=== PATIENT | female | born 1985 | race Two or more races ===

== ENCOUNTER 2016-10-08 23:43 | Emergency (ER) | payer OTHER ==
[~2016-10-08] VITALS: Ht 154.9 cm; Wt 56.7 kg
[~2016-10-08 23:43] MED LIST: CODE1CAP21
--- NOTE | 2016-10-08 23:55 | NUR ---
TO BED 8 A 30 YO FEMALE BIBSELF AND PT C/O LEFT SIDED NECK PAIN RADIATES TO LEFT SIDE OF FACE SINCE 5AM. NO TRAUMA. +N-V. TYLENOL 1GM 7AM. NAD NOTED. VSS. NONDIAPHORETIC. COMFORT MEASURES RENDERED. AWAITING FOR ER MD LANE.
--- NOTE | 2016-10-09 00:16 | NUR ---
Patel Barone at bedside to eval.
--- NOTE | 2016-10-09 00:28 | NUR ---
Patient discharged to home in stable condition. Written and verbal after care instructions given. Patient verbalizes understanding of instruction. Patient is ambulatory with steady gait, no further complaints.
[2016-10-09 00:29] VITALS: BP 105/71
== END 2016-10-09 00:43 | disposition home or self-care (01) ==
LOC: ER 23:47
DX: M62.838 Other muscle spasm (principal)
CPT/HCPCS: 99283; A4606; Z7610

== ENCOUNTER 2017-09-06 21:40 | Emergency (ER) | payer OTHER ==
[~2017-09-06] VITALS: Ht 154.9 cm; Wt 49.0 kg
[2017-09-06] MEDS ORDERED: MORPHINE SULFATE INJ 4 MG/ML DISP.SYRIN ONE (22:14)
[2017-09-06] MEDS ORDERED: ONDANSETRON HCL/PF 4 MG/2 ML VIAL ONE (22:14)
[2017-09-06] MEDS ORDERED: IV NS 0.9% 1,000 ML BAG IV ONE (22:30)
[2017-09-06] MEDS ORDERED: ONDANSETRON HCL/PF 4 MG/2 ML VIAL IVP ONE (22:30)
[2017-09-06] MEDS ORDERED: MORPHINE SULFATE INJ 2 MG/ML DISP.SYRIN IV ONE (22:30)
[2017-09-06 22:55] LABS: BASOPHILS % (AUTO) 0.1 % (0.0-2.0); EOSINOPHILS % (AUTO) 1.1 % (0.0-6.0); HEMATOCRIT 44 % (33-45); HEMOGLOBIN 15.3 g/dL (11.5-14.8); LYMPHOCYTES # (AUTO) 2.2 /CMM (0.8-4.8); LYMPHOCYTES % (AUTO) 21.2 % (20.0-44.0); MEAN CORPUSCULAR HEMOGLOBIN 32 PG (26.0-33.0); MEAN CORPUSCULAR HGB CONC 35 g/dl (31.0-36.0); MEAN CORPUSCULAR VOLUME 92 fL (82-100); MONOCYTES # (AUTO) 0.5 /CMM (0.1-1.30); MONOCYTES % (AUTO) 4.9 % (2.0-12.0); NEUTROPHILS # (AUTO) 7.5 /CMM (1.8-8.9); NEUTROPHILS % (AUTO) 72.7 % (43.0-81.0); PLATELET COUNT (AUTO) 221 /CMM (150-450); RDW COEFFICIENT OF VARIATION 12.4 (11.5-15.0); RED BLOOD CELL COUNT(AUTO) 4.81 MIL/uL (4.0-5.2); WHITE BLOOD COUNT (AUTO) 10.4 K/uL (4.3-11.0)
[2017-09-06 23:09] LABS: APPEARANCE,URINE CLOUDY (CLEAR); BILIRUBIN,URINE NEGATIVE (NEGATIVE); BLOOD, URINE 2+ Ery/uL (NEGATIVE); COLOR,URINE OTHER (YELLOW); KETONES,URINE NEGATIVE (NEGATIVE); LEUKOCYTE ESTERASE ,URINE NEGATIVE (NEGATIVE); NITRITE, URINE NEGATIVE (NEGATIVE); PROTEIN,URINE NEGATIVE (NEGATIVE); UGLUCOSE NEGATIVE (NEGATIVE); UROBILINOGEN,URINE 0.2 EU/dL (0.2)
[2017-09-06 23:16] LABS: CALCIUM, SERUM 9.8 mg/dL (8.5-10.1); CREATININE 0.7 mg/dL (0.6-1.3); POTASSIUM 3.7 mmol/L (3.5-5.1); WBC,URINE 0-2 /HPF (0-3)
[2017-09-06 23:17] LABS: BACTERIA,URINE Moderate /HPF (None Seen); SQUAMOUS EPITHELIAL CELL,UR Moderate /HPF (None Seen); URINE AMORPHOUS PHOSPHATES Moderate /HPF (None Seen)
[2017-09-06] MEDS ORDERED: KETOROLAC TROMETHAMINE INJ 30 MG/ML VIAL ONE (23:19)
[2017-09-06 23:23] LABS: BILIRUBIN,DIRECT 0.1 mg/dL (0.0-0.2); BILIRUBIN,TOTAL 0.5 mg/dL (0.2-1.0); TOTAL PROTEIN, SERUM 7.5 g/dL (6.4-8.2)
[2017-09-06 23:28] LABS: INR 0.98 (0.87-1.13)
[2017-09-06] MEDS ORDERED: KETOROLAC TROMETHAMINE INJ 30 MG/ML VIAL IV ONE (23:30)
[2017-09-07 01:19] VITALS: BP 145/85
== END 2017-09-07 01:20 | disposition home or self-care (01) ==
LOC: ER 21:45
DX: R10.9 Unspecified abdominal pain (principal); R31.9 Hematuria, unspecified; R11.0 Nausea
CPT/HCPCS: 36415; 74176; 80048; 80076; 81001; 83690; 84703; 85025; 85730; 87086; 96361; 96374; 96375; 99285; A4606; J1885; J2270; J2405; J7030; J7050; Z7610; 81000-TC

== ENCOUNTER 2017-09-07 13:32 | Emergency (ER) | payer OTHER ==
[~2017-09-07] VITALS: Ht 154.9 cm; Wt 49.0 kg
--- NOTE | 2017-09-07 13:40 | NUR ---
PT PRESENTED TO THE ER WITH A C/O ABD PAIN THAT RADIATES TO THE RT AND LEFT FLANK. PT STATED THAT SHE WAS HERE YESTERDAY AND WAS SENT HOME, BUT TOLD TO COME BACK IF PAIN WORSENS. RX MEDICATION DID NOT HELP. PT IS GUARDING HER ABD. 20G IV STARTED LAC. BLOOD DRAWN AND SENT TO LAB.
[2017-09-07] MEDS ORDERED: IV NS 0.9% 1,000 ML BAG IV ONE (14:00)
[2017-09-07] MEDS ORDERED: MORPHINE SULFATE INJ 2 MG/ML DISP.SYRIN IV ONE (14:00)
[2017-09-07] MEDS ORDERED: ONDANSETRON HCL/PF 4 MG/2 ML VIAL IVP ONE (14:00)
[2017-09-07] MEDS ORDERED: ONDANSETRON HCL/PF 4 MG/2 ML VIAL ONE (14:08)
[2017-09-07] MEDS ORDERED: MORPHINE SULFATE INJ 4 MG/ML DISP.SYRIN ONE (14:08)
[2017-09-07 14:34] LABS: BASOPHILS % (AUTO) 0.1 % (0.0-2.0); EOSINOPHILS % (AUTO) 0.1 % (0.0-6.0); HEMATOCRIT 42 % (33-45); HEMOGLOBIN 14.6 g/dL (11.5-14.8); LYMPHOCYTES # (AUTO) 0.7 /CMM (0.8-4.8); LYMPHOCYTES % (AUTO) 6.3 % (20.0-44.0); MEAN CORPUSCULAR HEMOGLOBIN 31 PG (26.0-33.0); MEAN CORPUSCULAR HGB CONC 35 g/dl (31.0-36.0); MEAN CORPUSCULAR VOLUME 90 fL (82-100); MONOCYTES # (AUTO) 0.3 /CMM (0.1-1.30); MONOCYTES % (AUTO) 2.4 % (2.0-12.0); NEUTROPHILS # (AUTO) 10.9 /CMM (1.8-8.9); NEUTROPHILS % (AUTO) 91.1 % (43.0-81.0); PLATELET COUNT (AUTO) 197 /CMM (150-450); RDW COEFFICIENT OF VARIATION 11.6 (11.5-15.0); RED BLOOD CELL COUNT(AUTO) 4.68 MIL/uL (4.0-5.2); WHITE BLOOD COUNT (AUTO) 11.9 K/uL (4.3-11.0)
[2017-09-07 14:38] LABS: APPEARANCE,URINE Clear (CLEAR); BILIRUBIN,URINE Negative (NEGATIVE); BLOOD, URINE Large Ery/uL (NEGATIVE); COLOR,URINE Yellow (YELLOW); KETONES,URINE 40 (NEGATIVE); LEUKOCYTE ESTERASE ,URINE Negative (NEGATIVE); NITRITE, URINE Negative (NEGATIVE); PH,URINE 5.5 (5.0-8.0); PROTEIN,URINE Trace mg/dl (NEGATIVE); UGLUCOSE Negative (NEGATIVE); UROBILINOGEN,URINE 0.2 EU/dL (0.2)
[2017-09-07 14:44] LABS: CREATININE 0.7 mg/dL (0.6-1.3); POTASSIUM 4.1 mmol/L (3.5-5.1)
[2017-09-07 14:47] LABS: INR 1.06 (0.85-1.15)
[2017-09-07 14:49] LABS: ALBUMIN 3.8 g/dL (3.4-5.0); BILIRUBIN,DIRECT 0.1 mg/dL (0.0-0.2); BILIRUBIN,TOTAL 0.5 mg/dL (0.2-1.0); TOTAL PROTEIN, SERUM 6.9 g/dL (6.4-8.2)
[2017-09-07 14:54] LABS: RBC,URINE 20-50 /HPF (0-2)
[2017-09-07 14:55] LABS: BACTERIA,URINE Few /HPF (None Seen); SQUAMOUS EPITHELIAL CELL,UR Moderate /HPF (None Seen); WBC,URINE 0-3 /HPF (0-3)
[2017-09-07] MEDS ORDERED: KETOROLAC TROMETHAMINE INJ 30 MG/ML VIAL ONE (15:27)
[2017-09-07] MEDS ORDERED: KETOROLAC TROMETHAMINE INJ 30 MG/ML VIAL IV ONE (15:30)
--- NOTE | 2017-09-07 15:45 | NUR ---
IV removed. Catheter intact and site benign. Pressure and 4x4 applied to site. No bleeding noted.Patient discharged to home in stable condition. Written and verbal after care instructions given. Patient verbalizes understanding of instruction. COPY OF LABS AND US FINDINGS GIVEN TO PT. PT AMBULATED OUT WITH A STEADY GAIT. VSS.
[2017-09-07 15:47] VITALS: BP 126/74
== END 2017-09-07 15:50 | disposition home or self-care (01) ==
LOC: ER 13:35
DX: R10.11 Right upper quadrant pain (principal); Z91.018 Allergy to other foods
CPT/HCPCS: 36415; 76705; 80048; 80076; 81001; 83690; 84703; 85025; 85730; 96374; 96375; 99285; A4606; J1885; J2270; J2405; J7030; Z7610; 81000-TC

== ENCOUNTER 2018-09-14 00:21 | Emergency (ER) | payer OTHER ==
[~2018-09-14] VITALS: Ht 157.5 cm; Wt 50.3 kg
--- NOTE | 2018-09-14 00:30 | NUR ---
PT BIBSELF C/C SOB AND CP X1HR, LEFT ARM AND FACIAL NUMBNESS. PT AOX4. PT AMBULATORY. PT ON MONITOR IN BED 2. PT DENIES ANY CARDIAC HISTORY AND/OR ANXIETY. WILL CONTINUE TO MONITOR.
--- NOTE | 2018-09-14 00:34 | NUR ---
TECH AT BEDSIDE FOR EKG
[2018-09-14] MEDS ORDERED: LORAZEPAM 1 MG TABLET ONE (00:38)
--- NOTE | 2018-09-14 00:46 | NUR ---
RADIOLOGY AT BEDSIDE FOR XRAY
[2018-09-14] MEDS ORDERED: LORAZEPAM 1 MG TABLET PO ONE (01:00)
--- NOTE | 2018-09-14 01:12 | NUR ---
FAMILY AT BEDSIDE
[2018-09-14 01:32] VITALS: BP 105/55
--- NOTE | 2018-09-14 01:32 | NUR ---
CALLED JOHN FOR CXR READ
--- NOTE | 2018-09-14 01:59 | NUR ---
Patient discharged to home in stable condition. Written and verbal after care instructions given. Patient verbalizes understanding of instruction. PT AMBULATORY WITH STEADY GAIT.
== END 2018-09-14 01:59 | disposition home or self-care (01) ==
LOC: ER 00:29
DX: F41.9 Anxiety disorder, unspecified (principal); Z91.018 Allergy to other foods
CPT/HCPCS: 71045-TC

== ENCOUNTER 2018-10-18 09:31 | Emergency (ER) | payer OTHER ==
[~2018-10-18] VITALS: Ht 154.9 cm; Wt 49.0 kg
[2018-10-18] MEDS ORDERED: ACETAMINOPHEN ES 500 MG TABLET ONE ×2 (09:57→09:59)
[2018-10-18] MEDS ORDERED: IBUPROFEN 600 MG TABLET PO ONE (09:58)
[2018-10-18] MEDS: ACETAMINOPHEN ES 500 MG TABLET PO ONE (10:02)
[2018-10-18] MEDS: IBUPROFEN 600 MG TABLET PO ONE (10:02)
[2018-10-18 11:03] VITALS: BP 108/72
== END 2018-10-18 11:07 | disposition home or self-care (01) ==
LOC: ER 09:31
DX: S93.491A Sprain of other ligament of right ankle, initial encounter (principal); Z91.018 Allergy to other foods; W01.0XXA Fall on same level from slipping, tripping and stumbling without subsequent striking against object, initial encounter; Y93.89 Activity, other specified; Y92.89 Other specified places as the place of occurrence of the external cause; Y99.8 Other external cause status
CPT/HCPCS: 73590-TC; 73610-TC; 73630-TC